=== PATIENT | male | born 1930 ===

== ENCOUNTER 2021-06-16 09:39 | Inpatient (IN) | payer OTHER ==
[~2021-06-16] VITALS: Ht 180.3 cm; Wt 72.6 kg
[2021-06-18] MEDS ORDERED: ISOSORBIDE MONO60 M2 (11:05)
[2021-06-18] MEDS ORDERED: METOPROLOL SUCC25 MG (11:05)
[2021-06-18] MEDS ORDERED: SPIRONOLACTONE50 MG (11:06)
[2021-06-18] MEDS ORDERED: ENALAPRIL MALEA10 MG (11:06)
[2021-06-18] MEDS ORDERED: ELIQUIS2.5 MG (11:06)
== END 2021-06-20 06:20 | disposition expired | DRG 177 ==
LOC: ER 09:39 → MEDJ 22:44 → ICU-2 23:18 → ICU 06-17 02:04
PROVIDERS: ADMIT Internal Medicine; ATTEND Internal Medicine
PROC: 5A0945A Assistance with Respiratory Ventilation, 24-96 Consecutive Hours, High Flow/Velocity Cannula (ICD-10-PCS; 2021-06-16)
PROC: 3E0F7SF Introduction of Other Gas into Respiratory Tract, Via Natural or Artificial Opening (ICD-10-PCS; 2021-06-16)
PROC: BB24ZZZ Computerized Tomography (CT Scan) of Bilateral Lungs (ICD-10-PCS; 2021-06-16)
PROC: B24BZZZ Ultrasonography of Heart with Aorta (ICD-10-PCS; 2021-06-17)
PROC: 5A09457 Assistance with Respiratory Ventilation, 24-96 Consecutive Hours, Continuous Positive Airway Pressure (ICD-10-PCS; principal; 2021-06-18)
DX: U07.1 COVID-19 (principal); J12.82 Pneumonia due to coronavirus disease 2019; J96.01 Acute respiratory failure with hypoxia; I46.2 Cardiac arrest due to underlying cardiac condition; I13.10 Hypertensive heart and chronic kidney disease without heart failure, with stage 1 through stage 4 chronic kidney disease, or unspecified chronic kidney disease; I25.10 Atherosclerotic heart disease of native coronary artery without angina pectoris; N18.30 Chronic kidney disease, stage 3 unspecified; Z95.0 Presence of cardiac pacemaker; Z95.5 Presence of coronary angioplasty implant and graft